=== PATIENT | female | born 1940 | race Caucasian/White ===

== ENCOUNTER 2021-01-07 21:56 | Inpatient (IN) | payer OTHER, MEDICAID ==
[~2021-01-07] VITALS: Ht 160 cm; Wt 103.4 kg
[2021-01-07 21:58] VITALS: BP 127/80
[2021-01-07] MEDS ORDERED: IPRAT-ALBUT 0.5-3 ML INH (22:28)
[2021-01-07] MEDS ORDERED: TYLENOL EXTRA500 MG PO (22:29)
[2021-01-07] MEDS ORDERED: CIPRO500 M1 PO (22:30)
[2021-01-07] MEDS ORDERED: VOLTAREN GEL 1100 G1 TOP (22:30)
[2021-01-07] MEDS ORDERED: VITAMIN D-40010 MCG PO (22:30)
[2021-01-07] MEDS ORDERED: DILTIAZEM ER180 M2 PO (22:31)
[2021-01-07] MEDS ORDERED: ELIQUIS5 M1 PO (22:31)
[2021-01-07] MEDS ORDERED: NEURONTIN100 MG PO (22:32)
[2021-01-07] MEDS ORDERED: ZETIA10 MG PO (22:32)
[2021-01-07] MEDS ORDERED: MAG-AL PLUS XS30 ML PO (22:33)
[2021-01-07] MEDS ORDERED: TOPROL XL50 MG (22:34)
[2021-01-07] MEDS ORDERED: NAMENDA 10 MG T10 MG PO (22:34)
[2021-01-07] MEDS ORDERED: MILK OF MA400 MG/5 M PO (22:35)
[2021-01-07] MEDS ORDERED: [UNRECOGNIZED DRUG - OTHER] PO (22:39)
[2021-01-07] MEDS ORDERED: NYSTATIN1000000 UN TOP (22:39)
[2021-01-07] MEDS ORDERED: OLANZAPINE5 M1 PO (22:40)
[2021-01-07] MEDS ORDERED: OLANZAPINE ODT5 MG PO (22:40)
[2021-01-07] MEDS ORDERED: SERTRALINE HCL100 MG PO (22:40)
[2021-01-07 22:43] LABS: ABSOLUTE BASOPHILS 0.1 thou/uL (0.0-0.2); ABSOLUTE EOSINOPHILS 0.1 thou/uL (0.0-0.7); ABSOLUTE LYMPHOCYTES 0.7 thou/uL (0.8-5.3); ABSOLUTE MONOCYTES 1.1 thou/uL (0.0-1.2); ABSOLUTE NEUTROPHILS 6.5 thou/uL (1.6-8.1); BASOPHILS 0.8 %; EOSINOPHILS 0.7 %; HEMATOCRIT 30.7 % (37.0-47.0); HEMOGLOBIN 10.3 gm/dL (12.0-15.0); MCHC 33.6 g/dL (28.0-37.0); MCV 92.3 fL (80.0-100.0); MONOCYTES 12.9 %; MPV 7.1 fl. (7.2-11.1); NUCLEATED RBCS 0 /100WBC; PLATELET COUNT* 182 thou/uL (150-400); POLYS 77.6 %; RBC 3.32 mil/uL (4.20-5.00); RDW-CV 15.8 % (10.5-14.5); WBC 8.4 thou/uL (4.0-11.0)
[2021-01-07 22:59] LABS: CALCIUM 8.9 mg/dL (8.5-10.1); POTASSIUM 3.9 mmol/L (3.5-5.1)
[2021-01-07 23:04] LABS: ALBUMIN 2.9 g/dL (3.4-5.0); TOTAL BILIRUBIN 0.5 mg/dL (<0.1-1.0); TOTAL PROTEIN 6.1 g/dL (6.4-8.2)
[2021-01-08] VITALS (7 sets, daily range): BP systolic 71–162; BP diastolic 36–76
[2021-01-08 01:48] LABS: URINE BILIRUBIN NEGATIVE (Negative); URINE BLOOD 1+ (Negative); URINE CLARITY CLEAR; URINE COLOR YELLOW; URINE GLUCOSE-RANDOM NEGATIVE (Negative); URINE KETONES NEGATIVE (Negative); URINE LEUKOCYTES-REFLEX NEGATIVE (Negative); URINE NITRITE-REFLEX NEGATIVE (Negative); URINE PROTEIN NEGATIVE (Negative); URINE SPECIFIC GRAVITY <= 1.005 (1.005-1.030); URINE UROBILINOGEN 0.2 E.U./dl (0.2-1.0)
[2021-01-08 02:04] LABS: BACTERIA-REFLEX 1-9 Few /HPF (None Seen); CASTS None Seen /LPF (None Seen); CRYSTALS None Seen /LPF (None Seen); MUCUS 0-3 Light strn/LPF (None Seen); SQUAMOUS 0-3 Few /LPF (0-3); URINE RBC 0-2 Rare /HPF (0-2); URINE WBC-REFLEX None Seen /HPF (0-5)
[2021-01-08 03:41] LABS: BE -1.5 mmol/L (-2 to +3); PCO2 42.5 mmHg (35.0-45.0); PO2 67.2 mmHg (75.0-100.0); pH 7.367 (7.340-7.450)
[2021-01-08 09:04] LABS: CREATININE 0.9 mg/dL (0.6-1.3)
[2021-01-08 09:07] LABS: PHOSPHORUS* 3.5 mg/dL (2.5-4.9)
--- NOTE | 2021-01-08 10:42 | EKG ---
[place] [address] ELECTROCARDIOGRAM REPORT Name: SKYE MORRISON Room: [address] IN [facility]#: [id number] Admission: 01/08/21 Attend Phys: Silvestre Ambrocio, Discharge: Date of : 44 Date of Service: 01/07/212214 Report #: [id number] THIS REPORT FOR: //name// [facility] ED Test Date: 2021-01-07 Test Time: 22:15:08 Pat Name: SKYE MORRISON Department: Room: [facility] Gender: F Small Animal Caretaker: MONAE : 1940 Requested By: Yanira Schultz Order Number: [id number] MD: Melecio Oscar Measurements Intervals [place] Rate: 74 P: [place]: QRS: 10 QRSD: 82 T: 23 QT: 385 QTc: 428 Interpretive Statements Atrial fibrillation No previous ECG available for comparison Electronically Signed On 01-08-2021 10:42:02 FORMULA CHECKER by Melecio Oscar [email or web address] <ELECTRONICALLY SIGNED> By: Melecio Oscar MD, [facility] 01/08/21 1042 14 14 Melecio Oscar MD, FACC /EPI
[2021-01-09] VITALS (8 sets, daily range): BP systolic 89–145; BP diastolic 50–73
[2021-01-09 05:36] LABS: HEMATOCRIT 32.3 % (37.0-47.0); HEMOGLOBIN 10.9 gm/dL (12.0-15.0); MCH 31.3 pg (26.0-34.0); MCHC 33.8 g/dL (28.0-37.0); MCV 92.4 fL (80.0-100.0); MPV 7.3 fl. (7.2-11.1); RBC 3.49 mil/uL (4.20-5.00); RDW-CV 15.1 % (10.5-14.5); WBC 6.8 thou/uL (4.0-11.0)
[2021-01-09 06:29] LABS: CALCIUM 9.2 mg/dL (8.5-10.1); CREATININE 0.7 mg/dL (0.6-1.3); MAGNESIUM 2.3 mg/dL (1.8-2.4); POTASSIUM 4.4 mmol/L (3.5-5.1)
[2021-01-10 00:35] VITALS: BP 124/60
[2021-01-10 04:00] VITALS: BP 130/65
[2021-01-10 08:30] VITALS: BP 142/62
[2021-01-10 08:59] VITALS: BP 142/62
[2021-01-10] MEDS ORDERED: ZINC SULFATE 2220 MG PO (09:05)
[2021-01-10] MEDS ORDERED: MELATONIN5 M1 PO (09:05)
[2021-01-10] MEDS ORDERED: DEXAMETHASONE 22 M1 PO (09:05)
[2021-01-10] MEDS ORDERED: VITAMINC500 PO (09:05)
[2021-01-10] MEDS ORDERED: ELIQUIS5 MG PO (09:05)
[2021-01-10] MEDS ORDERED: CEFDINIR300 MG PO (09:05)
[2021-01-10] MEDS ORDERED: AZITHROMYCIN 2250 MG PO (09:05)
== END 2021-01-10 14:00 | DRG 177 ==
LOC: M.ERS 21:56 → M.ORTHSURG 01-08 03:15 → M.TBA-ER 01-08 03:15 → M.ORTHSURG 01-08 03:46 → M.2W 01-09 19:50
PROVIDERS: Emergency Medicine; ADMIT Internal Medicine; ATTEND Internal Medicine
DX: U07.1 COVID-19 (principal); J15.6 Pneumonia due to other Gram-negative bacteria; J96.01 Acute respiratory failure with hypoxia; J12.82 Pneumonia due to coronavirus disease 2019; Z68.41 Body mass index [BMI] 40.0-44.9, adult; D68.69 Other thrombophilia; F03.90 Unspecified dementia, unspecified severity, without behavioral disturbance, psychotic disturbance, mood disturbance, and anxiety; E66.01 Morbid (severe) obesity due to excess calories; S01.01XA Laceration without foreign body of scalp, initial encounter; M25.561 Pain in right knee; W19.XXXA Unspecified fall, initial encounter; Z79.01 Long term (current) use of anticoagulants; Z79.899 Other long term (current) drug therapy; Z91.040 Latex allergy status; Z88.8 Allergy status to other drugs, medicaments and biological substances; Z91.018 Allergy to other foods; Z91.09 Other allergy status, other than to drugs and biological substances; Y93.89 Activity, other specified; Y92.89 Other specified places as the place of occurrence of the external cause; Y99.8 Other external cause status; Z23 Encounter for immunization

== ENCOUNTER 2021-04-18 17:23 | Inpatient (IN) | payer OTHER, MEDICAID ==
[~2021-04-18] VITALS: Ht 160 cm; Wt 98.5 kg
--- NOTE | ~2021-04-18 | CON ---
[address] [address] CONSULTATION Name: SKYE MORRISON Room: [address] IN .R.#: [id number] Admission: 04/18/21 Attend Phys: Ben Burgos MD Discharge: 04/21/21 Date of : 44 Report #: [id number] THIS REPORT FOR: cc: Frank Guillen MD, Srinath MD Liston, Michael J. MD [facility] ~ DOC #: [id number] cc: Frank Chen MD DATE OF CONSULTATION: 04/21/2021 CARDIOLOGY CONSULT INDICATION: Episode of unresponsiveness. HISTORY OF PRESENT ILLNESS: The patient is a 80-year-old white female who has moderate dementia with significant short-term memory loss. She was brought to the hospital after being noted to have a prolonged episode of acute mental status changes and unresponsiveness. She apparently had similar episodes in the past, but none lasting as long as the 1 prompting hospitalization. The patient has no recollection of any issues causing her to be hospitalized. At present, the patient is without complaint. She denies any chest pain or shortness of breath. She does not recall palpitations. She does have a history of chronic atrial fibrillation and appears to be chronically anticoagulated without difficulty. Telemetry monitoring here has shown atrial fibrillation with a controlled ventricular response rate. I have seen no issues on telemetry that would lead to prolonged unresponsiveness. PAST MEDICAL HISTORY: 1. Chronic atrial fibrillation. 2. Hypercoagulable state due to atrial fibrillation. 3. Chronic anticoagulation. 4. Coronary artery disease based on the finding of atherosclerosis on CT scan. 5. Dementia. 6. Hypertension. 7. Osteoarthritis. 8. History of major depressive disorder. FAMILY HISTORY: Not currently obtainable. Per past records not significant. SOCIAL HISTORY: The patient lives in assisted care on a memory unit. She does not smoke. There is no history of tobacco use. There is no alcohol use. REVIEW OF SYSTEMS: A 14-point review of systems as per HPI, [place] [address] CONSULTATION Name: SKYE MORRISON Room: [address]#: [id number] Admission: 04/18/21 Attend Phys: Ben Burgos MD Discharge: 04/21/21 Date of : 44 Report #: [id number] unremarkable. HOME MEDICATIONS: Tylenol 500 mg every 6 hours p.r.n., albuterol inhaler 1 puff every 6 hours, Eliquis 5 mg b.i.d., vitamin D3 10 mcg tablet daily, Voltaren gel topically b.i.d., diltiazem 360 mg daily, Zetia 10 mg daily, gabapentin 100 mg b.i.d., Latisha-Lanta liquid 30 mL every 4 hours p.r.n., milk of magnesia 30 mL daily, melatonin 5 mg at bedtime, Namenda 10 mg daily, metoprolol succinate 50 mg b.i.d., Myrbetriq 25 mg daily, nystatin topically b.i.d., olanzapine 10 mg tablets 1 at bedtime, sertraline 50 mg daily, Spiriva Handihaler one inhalation daily. ALLERGIES: PRAVASTATIN, SIMVASTATIN, ATORVASTATIN, LATEX, POLLEN VINEGAR. PHYSICAL EXAMINATION: VITAL SIGNS: Stable. Blood pressure 152/75, pulse is 96 and irregular. GENERAL: This is a pleasant female who is in no distress. HEENT: Head is normocephalic, atraumatic. Extraocular muscles intact. Mucous membranes are moist. NECK: Shows no jugular venous distention. There are no carotid bruits. CHEST: Reveals clear lung bruno. CARDIAC: Reveals an irregularly irregular rhythm without gallop or murmur. ABDOMEN: Reveals normal bowel sounds. The abdomen is soft and nontender. EXTREMITIES: Shows trace ankle edema. SKIN: Warm and dry. LABORATORY DATA: Reviewed. Sodium 141, potassium 3.8, chloride 106, bicarbonate 33, BUN 14, creatinine 0.8, serum glucose 95. LFTs are within normal limits. Troponin less than 0.06 on 3 separate occasions. NT-proBNP 1508. Hemoglobin 12.2, white blood cell count 5.7, platelet count 174,000. Chest x-ray shows no acute cardiopulmonary abnormality. IMPRESSION AND RECOMMENDATIONS: 1. Episode of unresponsiveness. Etiology is not clear. I do not see any evidence of cardiac dysrhythmia with the exception of her chronic atrial fibrillation on telemetry monitoring. I certainly do not see any rhythm, which would contribute to unresponsiveness. At this point, would continue clinical followup. If she continues to have episodes of unresponsiveness could consider loop recorder implantation as an outpatient. 2. Chronic atrial fibrillation. Rate adequately controlled. She is chronically anticoagulated without bleeding problems. 3. Hypertension, fairly well controlled on current regimen. 4. Hypercoagulable state due to atrial fibrillation. The patient is chronically anticoagulated and having no bleeding problems. [address] [address] CONSULTATION Name: SKYE MORRISON Room: [address] IN M.R.#: [id number] Admission: 04/18/21 Attend Phys: Ben Burgos MD Discharge: 04/21/21 Date of : 44 Report #: [id number] 5. Coronary artery disease based on noninvasive findings of coronary calcification. The patient is having no symptoms to suggest acute angina or unstable angina. Would continue to treat conservatively. She is unfortunately statin intolerance it appears. 6. Probable hyperlipidemia. The patient is statin intolerant. At this point, the patient appears stable from a cardiac standpoint. I do not see any obvious cardiac cause for her episode of unresponsiveness. We will follow clinically. MD LENA NunezL/SEDA/AMI By: [id number] 1950Patric Chen MD, FACC /nt
[~2021-04-18 17:23] MED LIST: AZITHROMYCIN 2250 MG PO; CEFDINIR300 MG PO; CIPRO500 M1 PO; DEXAMETHASONE 22 M1 PO; DILTIAZEM ER180 M2 PO; ELIQUIS5 M1 PO; ELIQUIS5 MG PO; IPRAT-ALBUT 0.5-3 ML INH; MAG-AL PLUS XS30 ML PO; MELATONIN5 M1 PO; MILK OF MA400 MG/5 M PO; NAMENDA 10 MG T10 MG PO; NEURONTIN100 MG PO; NYSTATIN1000000 UN TOP; OLANZAPINE10 M1 PO; OLANZAPINE5 M1 PO; SERTRALINE HCL100 MG PO; TOPROL XL50 MG; TYLENOL EXTRA500 MG PO; VITAMIN D-40010 MCG PO; VITAMINC500 PO; VOLTAREN GEL 1100 G1 TOP; ZETIA10 MG PO; ZINC SULFATE 2220 MG PO; [UNRECOGNIZED DRUG - OTHER] PO
[2021-04-18] MEDS ORDERED: PROAIR HFA8.5 GM INH (17:25)
[2021-04-18 17:26] VITALS: BP 140/77
[2021-04-18] MEDS ORDERED: MYRBETRIQ25 MG PO (17:31)
[2021-04-18] MEDS ORDERED: SPIRIVA18 MCG INH (17:32)
[2021-04-18 18:06] LABS: ABSOLUTE BASOPHILS 0.1 thou/uL (0.0-0.2); ABSOLUTE EOSINOPHILS 0.2 thou/uL (0.0-0.7); ABSOLUTE LYMPHOCYTES 2.3 thou/uL (0.8-5.3); ABSOLUTE MONOCYTES 0.7 thou/uL (0.0-1.2); ABSOLUTE NEUTROPHILS 3.5 thou/uL (1.6-8.1); BASOPHILS 1.1 %; EOSINOPHILS 2.8 %; HEMATOCRIT 36.2 % (37.0-47.0); HEMOGLOBIN 12.2 gm/dL (12.0-15.0); LYMPHOCYTES 34.4 %; MCH 30.5 pg (26.0-34.0); MCHC 33.6 g/dL (28.0-37.0); MCV 90.7 fL (80.0-100.0); MONOCYTES 9.9 %; MPV 7.2 fl. (7.2-11.1); NUCLEATED RBCS 0 /100WBC; PLATELET COUNT* 195 thou/uL (150-400); POLYS 51.8 %; RBC 3.98 mil/uL (4.20-5.00); RDW-CV 15.6 % (10.5-14.5); WBC 6.8 thou/uL (4.0-11.0)
[2021-04-18 18:16] LABS: CALCIUM 8.8 mg/dL (8.5-10.1); CREATININE 0.7 mg/dL (0.6-1.3)
[2021-04-18 18:24] LABS: URINE BILIRUBIN NEGATIVE (Negative); URINE BLOOD NEGATIVE (Negative); URINE CLARITY CLEAR; URINE COLOR YELLOW; URINE GLUCOSE-RANDOM NEGATIVE (Negative); URINE KETONES NEGATIVE (Negative); URINE LEUKOCYTES-REFLEX TRACE (Negative); URINE NITRITE-REFLEX NEGATIVE (Negative); URINE PROTEIN NEGATIVE (Negative); URINE UROBILINOGEN 0.2 E.U./dl (0.2-1.0)
[2021-04-18 18:27] LABS: ALBUMIN 3.3 g/dL (3.4-5.0); TOTAL BILIRUBIN 0.3 mg/dL (<0.1-1.0); TOTAL PROTEIN 6.1 g/dL (6.4-8.2)
--- NOTE | 2021-04-18 18:29 | NUR ---
THIS NURSE SPOKE WITH ELIER AT [facility] REGARDING PT'S CONDITION. ELIER STATED PT WAS NOTED TO BE UNRESPONSIVE IN HER WHEELCHAIR AROUND 3022-6021. IT WAS NOTED THAT SHE WAS STILL BREATHING BUT ONLY RESPONSIVE TO STERNAL RUB. PT WOULD WAKE, BUT THEN BECOME UNRESPONSIVE AGAIN. ELIER STATED UPON EMS ARRIVAL, STERNAL RUB BY EMS PRODUCED A STRONGER RESPONSE FROM PT. PT BECAME MORE ALERT WHEN EMS TRANSFERRED PT FROM WHEELCHAIR TO COT WHEN PT COMPLAINED OF HER KNEE HURTING. ELIER STATED PT HAS A HISTORY OF "THESE TYPES OF EPISODES" BUT THEY HADN'T LASTED THIS LONG BEFORE. USUALLY LASTING A MINUTE OR TWO. ELIER STATED PT HAD NO MEDICATIONS SINCE 0700 TODAY. INFORMATION PROVIDED TO ER PHYSICIAN BY THIS NURSE.
[2021-04-18 18:39] LABS: BACTERIA-REFLEX >30 Many /HPF (None Seen); CASTS None Seen /LPF (None Seen); CRYSTALS None Seen /LPF (None Seen); MUCUS 0-3 Light strn/LPF (None Seen); SQUAMOUS 0-3 Few /LPF (0-3); URINE RBC 0-2 Rare /HPF (0-2); URINE WBC-REFLEX 0-5 Rare /HPF (0-5)
[2021-04-18 21:00] VITALS: BP 101/38
[2021-04-18 21:05] VITALS: BP 153/70
[2021-04-18] MEDS ORDERED: MELATONIN5 M6 PO (22:11)
[2021-04-18] MEDS ORDERED: GERI-LANTA LIQ355 M1 PO (22:15)
[2021-04-19] VITALS: BP 104/59
[2021-04-19 04:00] VITALS: BP 135/59
--- NOTE | 2021-04-19 04:54 | NUR ---
RECEIVED REPORTF FROM ED RN. PT TRANSFERRED TO 231. PT A&OX1-2. CONFUSED. HIV/AIDS CARE NURSE IN PLACE. VSS. ADMISSION HISTORY & PHYSICAL ASSESSMENT COMPLETED AND CHARTED. PT ON O2 AT 2L NC. PT TRACING AFIB/ ELISEO ON TELE. PT TURNED TO SIDES. PT WITH WOUND TO LEFT INNER THIGH-PHOTOGRAPH TAKEN AND COVERED WITH MEPILEX. FALL PRECAUTIONS IN PLACE. CALL LIGHT WITHIN REACH.
[2021-04-19 08:51] VITALS: BP 122/55
[2021-04-19 11:35] VITALS: BP 138/49
--- NOTE | 2021-04-19 14:02 | NUR ---
ASSUMED PT CARE AT 0730. PT ADMITTED FROM A LTC FACILITY MEMORY/ DEMENTIA UNIT. PT IS ALERT TO PERSON, COOPERATIVE AND FRIENDLY. PT IS NON WEIGHT BEARING AND SAFETY MEASURES ARE IN PLACE. ROUNDING DONE EVERY HOUR AND PT REPOSITIONED Q2HR TO PROMOTE SKIN INTEGRITY. PT HAS A STAGE 2, DIME SIZE ON HER LEFT GLUTEAL FOLD. DRESSING CHANGE COMPLETED DUE TO SOILAGE. BED BATH GIVEN AND MOISTURE BARRIER APPLLIED AFTER EACH EPISODE OF INCONTINENCE. SPOKE WITH DAUGHTER AND UPDATED ON PT STATUS.
[2021-04-19 16:13] VITALS: BP 130/64
[2021-04-19 20:00] VITALS: BP 118/77
[2021-04-20] VITALS: BP 126/58
[2021-04-20 04:00] VITALS: BP 150/62
[2021-04-20 04:50] LABS: ABSOLUTE BASOPHILS 0.1 thou/uL (0.0-0.2); ABSOLUTE EOSINOPHILS 0.1 thou/uL (0.0-0.7); ABSOLUTE LYMPHOCYTES 1.4 thou/uL (0.8-5.3); ABSOLUTE MONOCYTES 0.5 thou/uL (0.0-1.2); ABSOLUTE NEUTROPHILS 3.6 thou/uL (1.6-8.1); BASOPHILS 1.4 %; EOSINOPHILS 2.1 %; HEMATOCRIT 35.1 % (37.0-47.0); HEMOGLOBIN 12.2 gm/dL (12.0-15.0); LYMPHOCYTES 24.5 %; MCHC 34.7 g/dL (28.0-37.0); MCV 89.3 fL (80.0-100.0); MONOCYTES 8.1 %; MPV 7.2 fl. (7.2-11.1); NUCLEATED RBCS 0 /100WBC; PLATELET COUNT* 174 thou/uL (150-400); POLYS 63.9 %; RBC 3.93 mil/uL (4.20-5.00); RDW-CV 15.3 % (10.5-14.5); WBC 5.7 thou/uL (4.0-11.0)
[2021-04-20 05:05] LABS: CREATININE 0.8 mg/dL (0.6-1.3); MAGNESIUM 1.8 mg/dL (1.8-2.4); POTASSIUM 3.8 mmol/L (3.5-5.1)
--- NOTE | 2021-04-20 06:31 | NUR ---
ASSUMED CARE OF PT AFTER REPORT AT 1930. PT A&OX1-2. VSS. PHYSICAL ASSESSMENT COMPLETED AND CHARTED. PT ON RA. PT TRACING AFIB ON TELE. PT TURNED TO SIDES. PT ABLE TO SLEEP WELL ON BED. CALL LIGHT WITHIN REACH.
--- NOTE | 2021-04-20 07:25 | NUR ---
CHANGE OF SHIFT BEDSIDE REPORT GIVEN ATIENT SEEN AT BEDSIDE, IN BED ASLEEP ASSUMED PATIENT CARE
[2021-04-20 08:00] VITALS: BP 165/79
--- NOTE | 2021-04-20 10:50 | EKG ---
[place] [address] ELECTROCARDIOGRAM REPORT Name: SKYE MORRISON Room: [address] IN [facility]#: [id number] Admission: 04/18/21 Attend Phys: Ben Burgos, Discharge: Date of : 44 Date of Service: 04/18/212101 Report #: [id number] THIS REPORT FOR: //name// [facility] Test Date: 2021-04-18 Test Time: 21:02:16 Pat Name: SKYE MORRISON Department: Room: [facility] Gender: F Construction Quality Control Manager: MOHINI : 1940 Requested By: Jordan James Order Number: [id number] MD: Melecio Oscar Measurements Intervals [place] Rate: 68 P: [place]: QRS: 4 QRSD: 106 T: 19 QT: 414 QTc: 441 Interpretive Statements Atrial fibrillation Borderline low voltage, extremity leads Compared to ECG 01/07/2021 22:15:08 No significant changes Electronically Signed On 04-20-2021 10:50:21 CDT by Melecio Oscar [email or web address] <ELECTRONICALLY SIGNED> By: Melecio Oscar MD, [facility] 04/20/21 1050 01 01 Melecio Oscar MD, [facility] /EPI
[2021-04-20 11:03] VITALS: BP 127/68
[2021-04-20 17:09] VITALS: BP 129/57
[2021-04-20 20:00] VITALS: BP 106/52
[2021-04-21 00:39] VITALS: BP 132/64
[2021-04-21 04:00] VITALS: BP 90/54
--- NOTE | 2021-04-21 06:40 | NUR ---
ASSUMED CARE OF PT AFTER REPORT AT 1930. PT A&OX1-2. FORGETFUL. VSS. PHYSICAL ASSESSMENT COMPLETED AND CHARTED. PT ON RA. PT TRACING AFIB ON TELE. PT TURNED TO SIDES. PT DENIES PAIN. FALL PRECAUTIONS IN PLACE. CALL LIGHT WITHIN REACH.
[2021-04-21 08:00] VITALS: BP 152/75
--- NOTE | 2021-04-21 11:10 | EKG ---
[place] [address] ELECTROCARDIOGRAM REPORT Name: SKYE MORRISON Room: [address] ADM IN [facility]#: [id number] Admission: 04/18/21 Attend Phys: Ben Burgos, Discharge: Date of : 44 Date of Service: 04/18/21 1723 Report #: [id number] THIS REPORT FOR: //name// [facility] ED Test Date: 2021-04-18 Test Time: 17:23:13 Pat Name: SKYE MORRISON Department: Room: [address] Gender: F Booking Clerk: RUI : 1940 Requested By: Ben Burgos Order Number: [id number] Reading MD: Melecio Oscar Measurements Intervals [place] Rate: 57 P: 108 MS: 227 QRS: 18 QRSD: 84 T: 29 QT: 437 QTc: 426 Interpretive Statements Atrial fibirllation artifact noted Compared to ECG 01/07/2021 22:15:08 rate has slowed Electronically Signed On 04-21-2021 11:10:17 CDT by Melecio Oscar [email or web address] <ELECTRONICALLY SIGNED> By: Melecio Oscar MD, FAC 04/21/21 1110 1723 1723 Melecio Oscar MD, [facility] /EPI
--- NOTE | 2021-04-21 11:11 | EKG ---
[place] [address] ELECTROCARDIOGRAM REPORT Name: SKYE MORRISON Room: [address] ADM IN [facility]#: [id number] Admission: 04/18/21 Attend Phys: Ben Burgos, Discharge: Date of : 44 Date of Service: 04/18/21 1724 Report #: [id number] THIS REPORT FOR: //name// [facility] ED Test Date: 2021-04-18 Test Time: 17:24:08 Pat Name: SKYE MORRISON Department: Room: [address] Gender: F Field Handyman: RUI : 1940 Requested By: Jordan James Order Number: [id number] Tino MD: Melecio Oscar Measurements Intervals [place] Rate: 51 P: 0 PA: 39 QRS: 18 QRSD: 84 T: 31 QT: 444 QTc: 409 Interpretive Statements atrial fibrillation artifact noted Compared to ECG 04/18/2021 17:23:13 no change Electronically Signed On 04-21-2021 11:11:41 CDT by Melecio Oscar [email or web address] <ELECTRONICALLY SIGNED> By: Melecio Oscar MD, [facility] 04/21/21 1111 1724 1724 Melecio Oscar MD, [facility] /EPI
--- NOTE | 2021-04-21 11:43 | NUR ---
WOUND NURSE: PATIENT SEEN TO ADDRESS A HEALING STAGE 2 PRESSURE INJURY ON THE LEFT THIGH RPESENTS WITH PARTIAL THICKNESS TISSUE LOSS, CONTAINING PINK NONGRANULATING TISSUE IN THE WOUND BED. WOUND CARE PROVIDED PRESCRIBED. PATIENT IS NOT TEACHEABLE. PATIENT DISCHARGING TODAY PER HER NURSE.
[2021-04-21 12:00] VITALS: BP 96/64
[2021-04-21] MEDS ORDERED: CEFDINIR300 MG PO (12:22)
--- NOTE | 2021-04-21 15:46 | NUR ---
CM ASSESSMENT: PT ALERT, BUT FORGETFUL. REVIEW OF PT'S CHART INFORMS THAT THE PT CURRENTLY RESIDES AT [facility]. CM SPOKE TO PT'S DTR AND SHE CONFIRMS THIS, AND PLANS FOR THE PT TO RETURN THERE AT D/C. CM SPOKE TO [facility] AND THEY CONFIRM THE SAME. CM WILL REMAIN AVAILABLE TO ASSIST AND FOLLOW NEEDED.
== END 2021-04-21 18:15 | DRG 308 ==
LOC: M.ERS 17:23 → M.TBA-ER 18:52 → M.2W 18:52
PROVIDERS: Emergency Medicine Emergency Medical Services; Internal Medicine; ADMIT Internal Medicine; ATTEND Internal Medicine
DX: R00.1 Bradycardia, unspecified (principal); G93.41 Metabolic encephalopathy; N39.0 Urinary tract infection, site not specified; D68.69 Other thrombophilia; I48.20 Chronic atrial fibrillation, unspecified; F03.90 Unspecified dementia, unspecified severity, without behavioral disturbance, psychotic disturbance, mood disturbance, and anxiety; I10 Essential (primary) hypertension; F32.9 Major depressive disorder, single episode, unspecified; I25.10 Atherosclerotic heart disease of native coronary artery without angina pectoris; M19.90 Unspecified osteoarthritis, unspecified site; Z20.822 Contact with and (suspected) exposure to COVID-19; Z91.040 Latex allergy status; Z88.8 Allergy status to other drugs, medicaments and biological substances; Z91.018 Allergy to other foods; Z91.09 Other allergy status, other than to drugs and biological substances; Z79.01 Long term (current) use of anticoagulants; Z79.899 Other long term (current) drug therapy